=== PATIENT | female | born 1990 | race Caucasian/White ===

== ENCOUNTER 2018-09-27 23:04 | Inpatient (IN) | payer BC ==
[2018-09-27] MEDS ORDERED: Oxytocin/0.9 % Sodium Chloride 30 UNIT/500 ML BAG ONE (23:14)
[2018-09-27] MEDS ORDERED: Sodium Chloride 0.9% 2.5 ML Syringe FLUSH PRN (23:24)
[2018-09-27] MEDS ORDERED: Lidocaine 1% 50 ML MDV INJECT PRN (23:24)
[2018-09-27] MEDS ORDERED: Tranexamic Acid 1,000 MG in Sodium Chloride 0.9% 100 ML IV PRN (23:24)
[2018-09-27] MEDS ORDERED: Carboprost Tromethamine 250 MCG/1 ML Amp IM PRN (23:24)
[2018-09-27] MEDS ORDERED: Sodium Chloride 0.9% 10 ML Syringe FLUSH PRN (23:24)
[2018-09-27] MEDS ORDERED: Misoprostol 200 MCG Tab PO PRN (23:24)
[2018-09-27] MEDS ORDERED: Water For Irrigation,Sterile 1,000 ML Container IRR PRN (23:24)
[2018-09-27] MEDS ORDERED: Nalbuphine 10 MG/1 ML Vial IVPUSH PRN (23:24)
[2018-09-27] MEDS ORDERED: Methylergonovine 0.2 MG/1 ML Amp IM PRN (23:24)
[2018-09-27] MEDS ORDERED: Sodium Chloride 0.9% 10 ML SDV IV PRN (23:24)
[2018-09-27] MEDS ORDERED: Butorphanol 1 MG/ML SDV IVPUSH PRN (23:24)
[2018-09-27] MEDS ORDERED: Oxytocin/0.9 % Sodium Chloride 30 UNIT/500 ML BAG IV SCH (23:30)
[2018-09-27] MEDS ORDERED: Lactated Ringers 1,000 ML IV SCH (23:30)
[2018-09-28] MEDS ORDERED: oxyCODONE 5 MG Tab PO PRN (00:14)
[2018-09-28] MEDS ORDERED: Lanolin 100% Cream 7 GM Tube TOP PRN (00:14)
[2018-09-28] MEDS ORDERED: Benzocaine/Menthol 20%-0.5% Spray 78 GM Cannister TOP PRN (00:14)
[2018-09-28] MEDS ORDERED: Bisacodyl 10 MG Supp RECTAL PRN (00:14)
[2018-09-28] MEDS ORDERED: Witch Hazel Medicated Pads 40/Jar TOP PRN (00:14)
[2018-09-28] MEDS ORDERED: Ibuprofen 400 MG Tab PO PRN (00:14)
[2018-09-28] MEDS ORDERED: Acetaminophen 500 MG Tab PO PRN (00:14)
--- NOTE | 2018-09-28 00:21 | PCM.DEL ---
L & D Note - General Info Date of Service: 09/28/18 Mother's Due Date: 09/25/18 - Delivery Note Labor: Spontaneous Delivery Outcome: Livebirth Infant Delivery Method: Spontaneous Vaginal Delivery-Single Presentation: Right Occiput Posterior (ROP) Nuchal Cord: Reduced Anesthetic: Lidocaine (Xylocaine) 1% Plain Local Anesthetic Volume: 4cc Amniotic Fluid Description: Clear Laceration: 2nd Degree Suture type: Other (Monocryl ) Suture size: 3-0 Placenta: Intact Cord: 3 Vessels Estimated Blood Loss: 100 Resuscitation Needed: No Score 1 min: 8 Score 5 min: 9 Delivery Comments (Free Text/Narrative):: Live female delivered at 2333 , 8/9 weight 3850g - General Info Date of Service: 09/28/18 - Patient Data Med Orders - Current: Current Medications Acetaminophen (Tylenol Extra Strength) 500 mg PO Q4H PRN PRN Reason: Pain Acetaminophen (Tylenol Extra Strength) 1,000 mg PO Q4H PRN PRN Reason: Pain Benzocaine/Menthol (Dermoplast Pain Relief 20%-0.5% Cascade) 78 gm TOP ASDIRECTED PRN PRN Reason: Perineal Comfort Measure Bisacodyl (Dulcolax) 10 mg RECTAL ONETIME PRN PRN Reason: Constipation Carboprost Tromethamine (Hemabate Ds) 250 mcg IM ASDIRECTED PRN PRN Reason: Post Hemorrhage Docusate Sodium (Colace) 100 mg PO BID PRN PRN Reason: Constipation Emollient Ointment (Lansinoh Hpa) 0 gm TOP ASDIRECTED PRN PRN Reason: Sore Nipples Lactated Ringer's (Ringers, Lactated) 1,000 mls @ 150 mls/hr IV ASDIRECTED CECY Oxytocin/Sodium Chloride (Oxytocin 30 Unit/500 Ml-Ns) 30 unit in 500 mls @ 999 mls/hr IV TITRATE [facility] Last Admin: 09/27/18 23:34 Dose: 999 mls/hr Tranexamic Acid 1,000 mg/ (Sodium Chloride) 110 mls @ 660 mls/hr IV ONETIME PRN PRN Reason: Bleeding Ibuprofen (Motrin) 400 mg PO Q4H PRN PRN Reason: Pain Ibuprofen (Motrin) 800 mg PO Q6H PRN PRN Reason: Pain Measles/Mumps/Rubella Vaccine Live (M-M-R Ii Vaccine) 0.5 ml SUBCUT .ONCE ONE Stop: 09/29/18 06:01 Methylergonovine Maleate (Methergine) 0.2 mg IM ASDIRECTED PRN PRN Reason: Post Hemorrhage Misoprostol (Cytotec) 200 mcg PO ONETIME PRN PRN Reason: Post Hemorrhage Oxycodone HCl (Oxycodone) 5 mg PO Q2H PRN PRN Reason: Pain Sodium Chloride (Saline Flush) 10 ml FLUSH ASDIRECTED PRN PRN Reason: Keep Vein Open Sodium Chloride (Saline Flush) 2.5 ml FLUSH ASDIRECTED PRN PRN Reason: Keep Vein Open Sodium Chloride (Normal Saline) 10 ml IV ASDIRECTED PRN PRN Reason: IV Use Sterile Water (Sterile Water For Irrigation) 1,000 ml IRR ASDIRECTED PRN PRN Reason: delivery Witch Janie (Tucks) 1 pad TOP ASDIRECTED PRN PRN Reason: comfort care Discontinued Medications Butorphanol Tartrate (Stadol) 1 mg IVPUSH Q1H PRN PRN Reason: Pain Oxytocin/Sodium Chloride (Oxytocin 30 Unit/500 Ml-Ns) Confirm Administered Dose 30 unit in 500 mls @ as directed .ROUTE .STK-MED ONE Stop: 09/27/18 23:15 Lidocaine HCl (Xylocaine 1%) 50 ml INJECT ONETIME PRN PRN Reason: Laceration repair Last Admin: 09/27/18 23:49 Dose: 50 ml Nalbuphine HCl (Nubain) 10 mg IVPUSH Q1H PRN PRN Reason: Pain (severe 7-10) - Problem List & Annotations (1) Vaginal delivery SNOMED Code(s): 600755803 Code(s): O80 - ENCOUNTER FOR FULL-TERM UNCOMPLICATED DELIVERY Status: Acute Current Visit: Yes - Problem List Review Problem List Initiated/Reviewed/Updated: Yes - My Orders Last 24 Hours: My Active Orders 09/27/18 23:24 CBC W/O DIFF,HEMOGRAM [HEME] Stat TYPE AND SCREEN [BBK] Stat Carboprost Tromethamine [Hemabate DS] 250 mcg IM ASDIRECTED PRN Methylergonovine [Methergine] 0.2 mg IM ASDIRECTED PRN Sodium Chloride 0.9% [Normal Saline] 10 ml IV ASDIRECTED PRN Sodium Chloride 0.9% [Saline Flush] 10 ml FLUSH ASDIRECTED PRN Sodium Chloride 0.9% [Saline Flush] 2.5 ml FLUSH ASDIRECTED PRN Tranexamic Acid [Cyklokapron] 1,000 mg Sodium Chloride 0.9% [Normal Saline] 100 ml IV ONETIME Water For Irrigation,Sterile [Sterile Water for Irrigation] 1,000 ml IRR ASDIRECTED PRN miSOPROStol [Cytotec] 200 mcg PO ONETIME PRN 09/27/18 23:25 Patient Status [ADT] Routine Heart Tones [RC] CONTINUOUS Non Stress Test [RC] PER UNIT ROUTINE May Shower [RC] ASDIRECTED Notify Provider [RC] PRN Up ad Daya [RC] ASDIRECTED Vaginal Exam [RC] PRN Vital Signs [RC] PER UNIT ROUTINE Peripheral IV Insertion Adult [OM.PC] Routine 09/27/18 23:30 Lactated Ringers [Ringers, Lactated] 1,000 ml IV ASDIRECTED Oxytocin/0.9 % Sodium Chloride [Oxytocin 30 Unit/500 ML-NS] 30 unit in 500 ml IV TITRATE 09/28/18 00:14 Patient Status [ADT] Routine May Shower [RC] ASDIRECTED Up ad Daya [RC] ASDIRECTED Vital Signs [RC] PER UNIT ROUTINE BLOOD GAS ARTERIAL UMBILICAL [BG] Urgent BLOOD GAS VENOUS UMBILICAL [BG] Urgent Acetaminophen [Tylenol Extra Strength] 1,000 mg PO Q4H PRN Acetaminophen [Tylenol Extra Strength] 500 mg PO Q4H PRN Benzocaine/Menthol [Dermoplast Pain Relief 20%-0.5% Cascade] 78 gm TOP ASDIRECTED PRN Bisacodyl [Dulcolax] 10 mg RECTAL ONETIME PRN Docusate Sodium [Colace] 100 mg PO BID PRN Ibuprofen [Motrin] 400 mg PO Q4H PRN Ibuprofen [Motrin] 800 mg PO Q6H PRN Lanolin [Lansinoh HPA] See Dose Instructions TOP ASDIRECTED PRN Witch Janie [Tucks] 1 pad TOP ASDIRECTED PRN oxyCODONE 5 mg PO Q2H PRN Assess Lochia [WOMSER] Per Unit Routine Assess Uterine Involution [WOMSER] Per Unit Routine Peripheral IV Discontinue [OM.PC] Routine 09/29/18 05:11 HEMOGLOBIN/HEMATOCRIT,HH [HEME] Timed 09/29/18 06:00 Measles, Mumps & Rubella [M-M-R II Vaccine] 0.5 ml SUBCUT .ONCE ONE
[2018-09-28] MEDS: Acetaminophen 500 MG Tab PO PRN ×3 (01:09→14:34)
[2018-09-28] MEDS: Ibuprofen 800 MG Tab PO PRN ×4 (01:10→23:14)
--- NOTE | 2018-09-28 01:12 | OR ---
SURGEON: LEE JACKSON DATE OF PROCEDURE:09/28/2018 PREOPERATIVE DIAGNOSIS: A 27-year-old, 2, para 1, at 40 weeks 2 days in active labor. POSTOPERATIVE DIAGNOSIS: A 27-year-old, 2, para 1, at 40 weeks 2 days in active labor. PROCEDURE: Normal spontaneous vaginal delivery and repair of second-degree vaginal laceration. ANESTHESIA: Local. ESTIMATED BLOOD LOSS: 100 mL. FINDINGS: A live female delivered at 2333 hours scores were 8 and 9. Weight 8lbs 80z. BRIEF HISTORY: The patient is a 27-year-old G2, P1, 40 weeks and 2 days, who came in complaining of contraction. She was 9 cm dilated, and she was complaining of an intense pressure, so she was given some time, about 30 minutes. She was feeling low pressure, so she was encouraged to push. PROCEDURE: With good pushing effort, she delivered the head in ROP position, subsequently the anterior and posterior shoulder. The body of the infant was delivered. The cord was wrapped around the neck and the body. It was reduced. The infant was placed on the maternal abdomen. Delayed cord clamping was observed. The cord was clamped and cut. The placenta was delivered via controlled cord traction. The perineum was inspected and noted to have a second-degree laceration. 1% lidocaine was placed and was injected in the incision, which was repaired with 3-0 Monocryl in an interlocking fashion. All instrument and pad count were correct x2. The patient tolerated the procedure well and was left in the Labor and Delivery room in stable condition. BRYSON MONTANA /[id number] DEION
[2018-09-28] MEDS: Docusate Sodium 100 MG Cap PO PRN ×2 (11:58→23:14)
[2018-09-29] MEDS: Ibuprofen 800 MG Tab PO PRN ×2 (05:23→12:37)
[2018-09-29] MEDS ORDERED: Measles, Mumps & Rubella Vaccine 0.5 ML SDV SUBCUT ONE (06:00)
[2018-09-29] MEDS: Docusate Sodium 100 MG Cap PO PRN (11:10)
--- NOTE | 2018-09-29 17:25 | PCM.PNPP ---
- General Info Date of Service: 09/29/18 Functional Status: Reports: Pain Controlled, Tolerating Diet, Ambulating, Urinating - Review of Systems General: Reports: No Symptoms HEENT: Reports: No Symptoms Pulmonary: Reports: No Symptoms Cardiovascular: Reports: No Symptoms Gastrointestinal: Reports: No Symptoms Genitourinary: Reports: No Symptoms Musculoskeletal: Reports: No Symptoms Skin: Reports: No Symptoms Neurological: Reports: No Symptoms Psychiatric: Reports: No Symptoms - Patient Data Vital Signs - Most Recent: Last Vital Signs Temp 36.4 C 09/29/18 16:39 Pulse 64 09/29/18 16:39 Resp 16 09/29/18 16:39 BP 104/58 L 09/29/18 16:39 Pulse Ox 96 09/29/18 16:39 Weight - Most Recent: 81.193 kg Lab Results - Last 24 Hours: Laboratory Results - last 24 hr 09/29/18 09/29/18 Range/Units 06:20 06:20 WBC 8.41 (4.0-11.0) K/uL RBC 3.74 L (4.30-5.90) M/uL Hgb Cancelled 10.9 L Hct Cancelled 34.3 L MCV 91.7 (80.0-98.0) fL MCH 29.1 (27.0-32.0) pg MCHC 31.8 (31.0-37.0) g/dL RDW Std Deviation 46.1 (28.0-62.0) fl RDW Coeff of Leo 14 (11.0-15.0) % Plt Count 178 (150-400) K/uL MPV 10.70 (7.40-12.00) fL Nucleated RBC % 0.0 /100WBC Nucleated RBCs # 0 K/uL Med Orders - Current: Current Medications Acetaminophen (Tylenol Extra Strength) 500 mg PO Q4H PRN PRN Reason: Pain Acetaminophen (Tylenol Extra Strength) 1,000 mg PO Q4H PRN PRN Reason: Pain Last Admin: 09/28/18 14:34 Dose: 1,000 mg Benzocaine/Menthol (Dermoplast Pain Relief 20%-0.5% [place]) 78 gm TOP ASDIRECTED PRN PRN Reason: Perineal Comfort Measure Bisacodyl (Dulcolax) 10 mg RECTAL ONETIME PRN PRN Reason: Constipation Carboprost Tromethamine (Hemabate Ds) 250 mcg IM ASDIRECTED PRN PRN Reason: Post Hemorrhage Docusate Sodium (Colace) 100 mg PO BID PRN PRN Reason: Constipation Last Admin: 09/29/18 11:10 Dose: 100 mg Emollient Ointment (Lansinoh Hpa) 0 gm TOP ASDIRECTED PRN PRN Reason: Sore Nipples Lactated Ringer's (Ringers, Lactated) 1,000 mls @ 150 mls/hr IV ASDIRECTED CECY Oxytocin/Sodium Chloride (Oxytocin 30 Unit/500 Ml-Ns) 30 unit in 500 mls @ 999 mls/hr IV TITRATE CECY Last Admin: 09/27/18 23:34 Dose: 999 mls/hr Tranexamic Acid 1,000 mg/ (Sodium Chloride) 110 mls @ 660 mls/hr IV ONETIME PRN PRN Reason: Bleeding Ibuprofen (Motrin) 400 mg PO Q4H PRN PRN Reason: Pain Ibuprofen (Motrin) 800 mg PO Q6H PRN PRN Reason: Pain Last Admin: 09/29/18 12:37 Dose: 800 mg Methylergonovine Maleate (Methergine) 0.2 mg IM ASDIRECTED PRN PRN Reason: Post Hemorrhage Misoprostol (Cytotec) 200 mcg PO ONETIME PRN PRN Reason: Post Hemorrhage Oxycodone HCl (Oxycodone) 5 mg PO Q2H PRN PRN Reason: Pain Sodium Chloride (Saline Flush) 10 ml FLUSH ASDIRECTED PRN PRN Reason: Keep Vein Open Sodium Chloride (Saline Flush) 2.5 ml FLUSH ASDIRECTED PRN PRN Reason: Keep Vein Open Sodium Chloride (Normal Saline) 10 ml IV ASDIRECTED PRN PRN Reason: IV Use Sterile Water (Sterile Water For Irrigation) 1,000 ml IRR ASDIRECTED PRN PRN Reason: delivery Witch Janie (Tucks) 1 pad TOP ASDIRECTED PRN PRN Reason: comfort care Discontinued Medications Butorphanol Tartrate (Stadol) 1 mg IVPUSH Q1H PRN PRN Reason: Pain Oxytocin/Sodium Chloride (Oxytocin 30 Unit/500 Ml-Ns) Confirm Administered Dose 30 unit in 500 mls @ as directed .ROUTE .STK-MED ONE Stop: 09/27/18 23:15 Lidocaine HCl (Xylocaine 1%) 50 ml INJECT ONETIME PRN PRN Reason: Laceration repair Last Admin: 09/27/18 23:49 Dose: 50 ml Measles/Mumps/Rubella Vaccine Live (M-M-R Ii Vaccine) 0.5 ml SUBCUT .ONCE ONE Stop: 09/29/18 06:01 Nalbuphine HCl (Nubain) 10 mg IVPUSH Q1H PRN PRN Reason: Pain (severe 7-10) - Interaction Disposition, : in Room with Family Interaction: Holding Infant Infant Feeding: Breastfed Infant; Nursed Well Support Person: - Recovery Exam Fundal Tone: Firm Fundal Level: 1 Fingerbreadths Below Umbilicus Fundal Placement: Midline Lochia Amount: Scant Lochia Color: Rubra/Red Perineum Description: Hemorrhoids Other Perinuem Description: first degree Episiotomy/Laceration: Approximated Bladder Status: Voiding Urinary Elimination: Voided - Exam General: Alert, Oriented Neck: Supple Lungs: Clear to Auscultation, Normal Respiratory Effort Cardiovascular: Regular Rate, Regular Rhythm GI/Abdominal Exam: Normal Bowel Sounds, Soft Extremities: Normal Range of Motion, No Pedal Edema Skin: Warm, Dry, Intact, Rash (petechial rash on face and chest.) Neurological: No New Focal Deficit Psy/Mental Status: Alert, Normal Affect, Normal Mood - Problem List & Annotations (1) Vaginal delivery SNOMED Code(s): 701882110 Code(s): O80 - ENCOUNTER FOR FULL-TERM UNCOMPLICATED DELIVERY Status: Acute Current Visit: Yes - Problem List Review Problem List Initiated/Reviewed/Updated: Yes - My Orders Last 24 Hours: My Active Orders 09/29/18 16:23 Ready for Discharge [RC] PER UNIT ROUTINE 09/29/18 Breakfast Regular Diet [DIET] - Assessment Assessment:: PPD#0 after , stable, minimal lochia would like to go home. - Plan Plan:: Discharge instructions reviewed, will check platelets prior to discharge due to petechiae, but if normal this is from pushing and delviery process.
== END 2018-09-29 18:10 | disposition home or self-care (01) | DRG 560 ==
LOC: MW.OBCHECK 23:04 → MW.OB 23:05 → OBSVTOIN 23:33 → MW.OB 23:33 → MW.OBCHECK 23:33 → MW.OB 09-28 02:54
PROVIDERS: ADMIT Obstetrics & Gynecology; ATTEND Obstetrics & Gynecology
PROC: 10E0XZZ Delivery of Products of Conception, External Approach (ICD-10-PCS; principal; 2018-09-28)
PROC: 0KQM0ZZ Repair Perineum Muscle, Open Approach (ICD-10-PCS; 2018-09-28)
DX: O48.0 Post-term pregnancy (principal); O70.1 Second degree perineal laceration during delivery; O69.81X0 Labor and delivery complicated by cord around neck, without compression, not applicable or unspecified; Z3A.40 40 weeks gestation of pregnancy; Z37.0 Single live birth
CPT/HCPCS: 36415; 59025; 59409; 82803; 85027; 86850; 86900; 86901; 90707; A9270-GY; J2001; J2590

== ENCOUNTER 2023-09-12 14:00 | Inpatient (IN) | payer BC ==
[2023-09-12] MEDS: Lactated Ringers 1,000 ML IV SCH (14:00)
[2023-09-12] MEDS ORDERED: Sodium Chloride 0.9% 10 ML Syringe FLUSH PRN (14:15)
[2023-09-12] MEDS ORDERED: Water For Irrigation,Sterile 1,000 ML Container IRR PRN (14:15)
[2023-09-12] MEDS ORDERED: Lactated Ringers 1,000 ML IV SCH (14:15)
[2023-09-12] MEDS ORDERED: Butorphanol 2 MG/ML SDV IVPUSH PRN (14:15)
[2023-09-12] MEDS ORDERED: Acetaminophen/oxyCODONE 325-5 MG Tab PO PRN ×2 (14:15)
[2023-09-12] MEDS ORDERED: Ondansetron 4 MG/2 ML SDV IVPUSH PRN (14:15)
[2023-09-12] MEDS ORDERED: Bisacodyl 10 MG Supp RECTAL PRN (14:15)
[2023-09-12] MEDS ORDERED: Oxytocin 10 Units/1 ML SDV IM PRN (14:15)
[2023-09-12] MEDS ORDERED: Oxytocin/0.9 % Sodium Chloride 30 UNIT/500 ML BAG IV SCH ×2 (14:15)
[2023-09-12] MEDS ORDERED: Ketorolac 30 MG/ML SDV IVPUSH SCH (14:15)
[2023-09-12] MEDS ORDERED: Sodium Chloride 0.9% 2.5 ML Syringe FLUSH PRN (14:15)
[2023-09-12] MEDS ORDERED: diphenhydrAMINE 50 MG/ML SDV IVPUSH PRN (14:15)
[2023-09-12] MEDS ORDERED: Lanolin 100% Cream 7 GM Tube TOP PRN (14:15)
[2023-09-12] MEDS ORDERED: Carboprost Tromethamine 250 MCG/1 mL Vial IM PRN (14:15)
[2023-09-12] MEDS ORDERED: Terbutaline 1 MG/ML SDV SUBCUT PRN (14:15)
[2023-09-12] MEDS ORDERED: Misoprostol 200 MCG Tab PO PRN (14:15)
[2023-09-12] MEDS ORDERED: Sodium Chloride 0.9% 20 ML SDV IV PRN (14:15)
[2023-09-12] MEDS ORDERED: Misoprostol 25 MCG (1/4 of 100 MCG) Tab VAG PRN ×2 (14:15)
[2023-09-12] MEDS ORDERED: Lidocaine 1% 50 ML MDV INJECT PRN (14:15)
[2023-09-12] MEDS ORDERED: Methylergonovine 0.2 MG/1 ML Amp IM PRN ×2 (14:15)
[2023-09-12] MEDS ORDERED: ePHEDrine 50 MG/ML SDV IVPUSH PRN ×2 (15:01)
[2023-09-12] MEDS ORDERED: Phenylephrine HCl In 0.9% NaCl 1 MG/10 ML Syringe IVPUSH PRN (15:01)
[2023-09-12 15:06] LABS: HEMATOCRIT 35.3 % (37.0-47.0); HEMOGLOBIN 12.5 g/dL (12.0-16.0); MEAN CORPUSCULAR HEMOGLOBIN 32.2 pg (28.0-32.0); MEAN CORPUSCULAR HGB CONC 35.4 g/dL (32.0-36.0); MEAN PLATELET VOLUME 9.9 fL (9.4-12.3); PLATELET COUNT,PLT 150 K/uL (150-400); RED BLOOD CELL COUNT 3.88 M/uL (4.10-5.30); WHITE BLOOD CELL COUNT,WBC 7.97 K/uL (3.9-11.3)
[2023-09-12] MEDS ORDERED: dexmedeTOMIDine HCl 200 MCG/2 ML SDV ONE (15:20)
[2023-09-12] MEDS: Ropivacaine HCl/PF 400 MG in Premix Bag 1 BAG EPIDUR SCH (15:20)
[2023-09-12] MEDS: Oxytocin/0.9 % Sodium Chloride 30 UNIT/500 ML BAG IV SCH (15:43)
[2023-09-12] MEDS: Tranexamic Acid IN NACL,ISO-OS 1,000 MG in Premix Bag 1 BAG IV PRN (17:27)
[2023-09-12] MEDS: Misoprostol 200 MCG Tab RECTAL PRN (17:29)
[2023-09-12] MEDS: Benzocaine/Menthol 20%-0.5% Spray 78 GM Cannister TOP PRN (17:29)
[2023-09-12] MEDS: Witch Hazel Medicated Pads 40/Jar TOP PRN (17:29)
[2023-09-12] MEDS: Ibuprofen 800 MG Tab PO PRN (20:43)
[2023-09-12] MEDS: Docusate Sodium 100 MG Cap PO SCH (20:44)
[2023-09-12] MEDS: Acetaminophen 500 MG Tab PO PRN (21:39)
[2023-09-12] MEDS: Cyclobenzaprine 10 MG Tab PO PRN (21:43)
[2023-09-13 07:08] LABS: HEMATOCRIT 36.3 % (37.0-47.0); HEMOGLOBIN 12.6 g/dL (12.0-16.0)
[2023-09-13] MEDS ORDERED: Ibuprofen 800 MG Tab PO PRN (20:15)
== END 2023-09-14 10:38 | disposition home or self-care (01) | DRG 560 ==
LOC: MW.OBCHECK 14:00 → MW.OB 14:02 → MW.OBCHECK 14:15 → MW.OB 21:00
PROVIDERS: ADMIT Obstetrics & Gynecology; ATTEND Obstetrics & Gynecology
PROC: 10E0XZZ Delivery of Products of Conception, External Approach (ICD-10-PCS; principal; 2023-09-12)
PROC: 0KQM0ZZ Repair Perineum Muscle, Open Approach (ICD-10-PCS; 2023-09-12)
PROC: 10907ZC Drainage of Amniotic Fluid, Therapeutic from Products of Conception, Via Natural or Artificial Opening (ICD-10-PCS; 2023-09-12)
DX: O70.1 Second degree perineal laceration during delivery (principal); Z3A.39 39 weeks gestation of pregnancy; Z37.0 Single live birth
CPT/HCPCS: 36415; 51702; 59025; 59409; 85014; 85018; 85027; 86592; 86850; 86900; 86901; A9270-GY; J2590; J2795; J3490; J7120